=== PATIENT | male | born 1970 | race Caucasian/White ===

== ENCOUNTER 2024-03-10 07:21 | Day surgery (SDC) | payer OTHER ==
[~2024-03-10] VITALS: Ht 172.7 cm; Wt 83.5 kg
[2024-03-10] MEDS ORDERED: LIDOCAINE 2% 100 MG/5 ML UJET TP ONE (08:55)
[2024-03-10] MEDS ORDERED: fentaNYL citrate 0.05 MG/ML VIAL ONE (08:55)
[2024-03-10] MEDS: fentaNYL citrate 0.05 MG/ML VIAL IVP ONE (09:20)
== END 2024-03-10 10:05 | disposition home or self-care (01) ==
LOC: MDS 07:21 → MMU 07:21 → MDS 10:05
PROVIDERS: ATTEND Internal Medicine Gastroenterology
DX: Z12.11 Encounter for screening for malignant neoplasm of colon (principal); K64.8 Other hemorrhoids; K57.30 Diverticulosis of large intestine without perforation or abscess without bleeding; I10 Essential (primary) hypertension; E78.5 Hyperlipidemia, unspecified; F41.9 Anxiety disorder, unspecified; F32.A Depression, unspecified; Z88.6 Allergy status to analgesic agent; Z79.899 Other long term (current) drug therapy; Z98.890 Other specified postprocedural states
CPT/HCPCS: 45378; J3010